=== PATIENT | male | born 1990 | race Caucasian/White ===

== ENCOUNTER 2023-04-18 12:35 | Emergency (ER) | payer MEDICARE, MEDICAID, SELFPAY ==
[2023-04-18 12:40] VITALS: BP 137/85; PULSE 68; RESP 16; TEMP 36.6; O2SAT 98
--- NOTE | 2023-04-18 13:57 | ED_ITS ---
HPI - Skin/Abscess/Foreign Bdy General Chief complaint: Skin/Abscess/Foreign Body Stated complaint: bump under left armpit Time Seen by Provider: 04/18/23 13:48 History of Present Illness HPI narrative: 32-year-old male presents to the emergency room for evaluation of a painful mass to his left armpit this been present for couple of days. Review of Systems Review of Systems: CONSTITUTIONAL: Denies fever, chills, or sweats. EYES: Denies visual changes, redness, or discharge. ENT: Denies rhinorrhea, congestion, sore throat, or otalgia. CARDIOVASCULAR: Denies chest pain, palpitations, or edema. RESPIRATORY: Denies cough or dyspnea. GASTROINTESTINAL: Denies abdominal pain, nausea, vomiting, or diarrhea. GENITOURINARY: Denies dysuria or hematuria. SKIN: Reports painful axillary mass MUSCULOSKELETAL: Denies back pain, joint pain, or myalgia. NEUROLOGIC: Denies headache, numbness, dizziness, or weakness. PSYCHIATRIC: Denies anxiety or depression. Exam Narrative: GENERAL: Well-appearing, well-nourished, no physical limitations, and in no acute distress. HEAD: Normocephalic, atraumatic. EYES: Conjunctivae normal, PERRLA and EOMI. CHEST: Clear to auscultation. No respiratory distress. No wheezes rales or rhonchi. HEART: Regular rate and rhythm. No murmur heard. Normal peripheral pulses. EXTREMITIES: Normal range of motion. No edema. No clubbing or cyanosis SKIN: Pea-sized erythematous indurated mass to the left axilla. No signs of lymphangitic spread NEURO: No focal deficits. Alert and oriented x3. MAEW. CN's II-XI intact bilaterally, normal gait PSYCH: Cooperative. Normal mood and affect. Course Vital Signs Vital signs: Vital Signs Temperature 36.6 C 04/18/23 12:40 Pulse Rate 68 04/18/23 12:40 Respiratory Rate 16 04/18/23 12:40 Blood Pressure 137/85 04/18/23 12:40 Pulse Oximetry 98 04/18/23 12:40 Oxygen Delivery Room Air 04/18/23 12:40 Temperature 36.6 C 04/18/23 12:40 Pulse Rate 68 04/18/23 12:40 Respiratory Rate 16 04/18/23 12:40 Blood Pressure 137/85 04/18/23 12:40 Pulse Oximetry 98 04/18/23 12:40 Oxygen Delivery Room Air 04/18/23 12:40 Discharge Plan Discharge Clinical Impression: Abscess of skin or subcutaneous tissue Qualifiers: Site of cutaneous abscess of extremity: axilla Laterality: left Patient Disposition: Home, Self-Care Condition: Stable Instructions: Antibiotic Form, Abscess (ED) Prescriptions: New sulfamethoxazole-trimethoprim 800-160 mg tablet 1 tablet PO Q12H Qty: 14 0RF Follow-up/Referrals: PHYSICIAN,[employer] [Primary Care Provider] - Time of Disposition: 13:57
== END 2023-04-18 14:16 | disposition home or self-care (01) ==
LOC: ANHED 14:11
PROVIDERS: Emergency Provider Nurse Practitioner Family
DX: L02.412 Cutaneous abscess of left axilla (principal)
CPT/HCPCS: 99283